=== PATIENT | female | born 1980 | race American Indian/Alaskan Native ===

== ENCOUNTER 2016-11-25 13:30 | Emergency (ER) | payer OTHER ==
[2016-11-25 14:31] VITALS: BP 123/74
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
== END 2016-11-25 17:52 | disposition home or self-care (01) ==
LOC: ED 13:30
DX: M79.1 Myalgia (principal); V49.49XA Driver injured in collision with other motor vehicles in traffic accident, initial encounter; Y93.9 Activity, unspecified; Y92.9 Unspecified place or not applicable; Y99.9 Unspecified external cause status
CPT/HCPCS: 99282